=== PATIENT | female | born 1990 | race Caucasian/White ===

== ENCOUNTER 2022-08-03 19:50 | Inpatient (IN) ==
[2022-08-03] MEDS ORDERED: LIDOCAINE 1% LOCAL 20 ML VIAL INFIL PRN (20:42)
[2022-08-03] MEDS ORDERED: OXYTOCIN 30 UNITS/500 ML BAG IV PRN (20:42)
--- NOTE | 2022-08-03 20:47 | History & Physical Report ---
Date of Service August 03, 2022 Assessment & Plan (1) 39 weeks gestation of : Plan: Admit, routine labs, Cytotec 25 mcg sublingual every 4 hours, oxytocin after cervical ripening, epidural when patient desires Anticipate spontaneous vaginal delivery (2) Premature rupture of membranes: Plan: GBS negative Consider antibiotics if prolonged rupture of membranes, or signs or symptoms consistent with choio during labor History of Present Illness Chief Complaint: LOF Primary Care Provider: NO PCP Patient is a pleasant 31-year-old at 39 weeks and 5 days who presented to labor and delivery after calling the answering service for spontaneous rupture of membranes at 6:45 PM tonight. Was having cramping prior, and having irregular contractions at this time. She denies vaginal bleeding. Notes good movement. Denies headache, blurry vision, right upper quadrant or epigastric pain. No other complications this . Allergies Allergy/AdvReac Type Severity Reaction Status Date / Time No Known Allergies Allergy Unverified 08/03/22 20:42 Home Medications Medication Instructions Recorded Confirmed Type 1 tab PO DAILY 08/03/22 08/03/22 History ferrous sulfate 325 mg (65 mg 325 mg PO BID 08/03/22 08/03/22 History iron) tablet (iron) Patient History Surgical History Hx of adenoidectomy 10 years old [place] teeth extracted 2006 Social History Smoking Status: Former smoker Smoking End Date: 2017; Hx Alcohol Use: No Hx Substance Use: No Preferred Language: Lao Communication Ability: Effective Certified Optician Required: No Beliefs That Will Affect Care: None marital status: Current Living Situation: Spouse Other Information That Helps Us Care for You: No Feels Safe at Home: Yes Safety Concerns: Feels Safe At This Time Assistive Devices: None 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 Review of Systems All systems reviewed & are unremarkable except as noted in HPI & below Physical Exam Constitutional: WD/WN, vitals as above Respiratory: normal respiratory effort, lungs clear to auscultation Cardiovascular: RRR, no murmur, no edema Gastrointestinal (Abdomen): normal bowel sounds, soft, nontender, no hepatosplenomegaly Leopolds 3500g Genitourinary: Grossly ruptured on exam cephalic Cervix: 50/-3 posterior and soft checked by RN Results & Data ([facility]) Vital Signs (Past 12 Hours) Vital Signs Temp Pulse Resp BP 08/03/22 20:11 36.9 C 18 08/03/22 20:07 104 H 133/88 Monitoring External Monitor heart tracing: Baseline 130, moderate variability, positive accelerations, no decelerations, category 1 tracing Tocodynamometer Tocometer: Irregular contractions
[2022-08-03 21:22] LABS: Hematocrit (blood only) 39.1 % (34.1-44.9); Hemoglobin 13.8 g/dl (12.0-16.0); Mean Corpuscular Hemoglobin 33.7 pg (25.0-34.0); Mean Corpuscular Hgb Conc 35.3 g/dL (32.0-36.0); Mean Corpuscular Volume 95.6 fL (80.0-100.0); Mean Platelet Volume 9.8 fL (9.4-12.3); Platelet Count 222 K/uL (130-400); RDW Coefficient of Variation 13.8 % (11.5-14.5); RDW Standard Deviation 48.5 fL (36.4-46.3); Red Blood Count 4.09 M/uL (3.93-5.22); White Blood Count 9.42 K/ul (4.8-10.8)
[2022-08-03] MEDS: miSOPROStoL 25 MCG TAB SL SCH (21:27)
[2022-08-04] MEDS ORDERED: miSOPROStoL 25 MCG TAB SL SCH
[2022-08-04] MEDS: LACTATED RINGER'S 1,000 ML IV PRN ×3 (00:19→09:05)
[2022-08-04] MEDS ORDERED: ePHEDrine sulfate 50 MG/ML AMP ONE ×2 (00:24→09:35)
[2022-08-04] MEDS ORDERED: SODIUM CHLORIDE 0.9% INJ 10 ML VIAL ONE (00:24)
[2022-08-04] MEDS ORDERED: fentaNYL citrate 100 MCG/2 ML VIAL ONE (00:24)
[2022-08-04] MEDS ORDERED: BUPIVACAINE 0.25% 30 ML VIAL ONE (00:24)
[2022-08-04] MEDS ORDERED: LIDOCAINE 2%/EPINEPHRINE 1:200,000 20 ML SDV ONE (00:25)
[2022-08-04] MEDS ORDERED: fentaNYL 2MCG/ML ROPIVACAINE 1.25MG/ML 100 ML BAG EPI ONE (00:25)
[2022-08-04] MEDS ORDERED: NALBUPHINE HCL INJ 10 MG/ML AMP IV PRN ×2 (00:42→10:19)
[2022-08-04] MEDS ORDERED: fentaNYL 2MCG/ML ROPIVACAINE 1.25MG/ML 100 ML BAG EPI PRN (00:42)
[2022-08-04] MEDS ORDERED: NALOXONE HCL 1 MG in SODIUM CHLORIDE 0.9% 1000ML 1,000 ML IV PRN ×2 (00:42→10:19)
[2022-08-04] MEDS ORDERED: NALOXONE HCL 0.4 MG/1 ML VIAL/CARP IV PRN ×2 (00:42→10:19)
[2022-08-04] MEDS ORDERED: diphenhydrAMINE 50 MG/ML VIAL IV PRN ×2 (00:42→10:19)
[2022-08-04] MEDS ORDERED: ePHEDrine sulfate 50 MG/ML AMP IV PRN ×3 (00:42→10:19)
[2022-08-04] MEDS ORDERED: ONDANSETRON INJ 2 MG/ML 2 ML VIAL IV PRN ×3 (00:42→10:19)
--- NOTE | 2022-08-04 00:45 | Anesthesiology Consultation ---
Date of Service August 04, 2022 Assessment & Plan Chart Review Chart Review: Patient NOT seen in Pre Admission Testing and Acceptable Risk for Labor Epidural Consults Requested none ASA ASA2 Proposed Anesthesia Anesthesia Type: Labor Epidural and CSE Risk / Benefits Reviewed With: PT / POA / Parent / Guardian, Accepts Plan and Informed Consent Obtained History Height/Weight Height: 5 ft 6 in Weight: 75.8 kg Allergies Allergy/AdvReac Type Severity Reaction Status Date / Time No Known Allergies Allergy Unverified 08/03/22 20:42 Medications Home Medications Medication Instructions Recorded Confirmed Last Taken 1 tab PO DAILY 08/03/22 08/03/22 08/03/22 ferrous sulfate 325 mg (65 mg 325 mg PO BID 08/03/22 08/03/22 07/27/22 iron) tablet (iron) Active Medications Generic Name Dose Route Start Last Admin Trade Name Freq PRN Reason Stop Dose Admin Lactated Ringer's 1,000 mls @ 125 mls/hr 08/03/22 20:42 08/04/22 00:19 Lr IV 08/05/22 20:41 999 mls/hr .Q8H PRN Administration L&D Protocol Protocol Misoprostol 25 mcg 08/03/22 21:30 08/03/22 21:27 Misoprostol 25 Mcg Tab SL 09/02/22 21:29 25 mcg Q4H MARNI Administration NPO Date Last Intake of Fluids: 08/04/22 Time Last Intake of Fluids: 00:10 Date Last Intake of Solids: 08/03/22 Time Last Intake of Solids: 18:00 Exercise / Class Metabolic Activity II 4-5 Yardwork/Stairs/Walk up hill Past Surgical History Surgical History Hx of adenoidectomy 10 years old [place] teeth extracted 2006 Past Anesthesia History No Hx of Anesthesia Complications and No Family Hx of Anesthesia Complications History of PONV No Hx of PONV and No Hx of Motion Sickness Social History Smoking Status: Former smoker tobacco type: cigarettes Smoking End Date: 2017 Hx Alcohol Use: No Hx Substance Use: No Review of Systems no chest pain or sob Physical Exam Vital Signs Last Vital Signs Temp 36.8 C 08/03/22 23:50 Pulse 94 H 08/04/22 00:41 Resp 18 08/03/22 20:11 BP 129/76 08/04/22 00:34 Pulse Ox 100 08/04/22 00:41 ENMT Mouth: no TMJ abnormality Thyromental Distance: > or= 3.5 Finger Breadths Mallampati Class: II Neck normal visual inspection Respiratory normal respiratory effort Auscultation: lungs clear to auscultation bilaterally Cardiovascular Rate/Rhythm: regular rate and regular rhythm Musculoskeletal Spine: normal cervical ROM Neurologic moves all extremities Psychiatric Orientation: alert and oriented x 3 Testing Laboratory Results 08/03/22 21:04
[2022-08-04] MEDS ORDERED: NURSING L&D Epidural Breakthrough Pain Update ONE (03:11)
[2022-08-04] MEDS: miSOPROStoL 25 MCG TAB SL SCH (05:57)
--- NOTE | 2022-08-04 06:18 | Labor Progress Brief Note ---
Date of Service August 04, 2022 Subjective Doing well with epidural, no pain or pressure No new complaints Review of Systems All systems reviewed & are unremarkable except as noted in HPI & below Assessment & Plan (1) 39 weeks gestation of : Plan: Received 1 dose of 25 mcg of Cytotec sublingually, received an epidural, has required no oxytocin for augmentation Anticipate spontaneous vaginal delivery (2) Premature rupture of membranes: Plan: GBS negative Admission and Anticipated Discharge Date Admission Date: August 03, 2022 Physical Exam Constitutional: WD/WN, vitals as above Respiratory: normal respiratory effort, lungs clear to auscultation Cardiovascular: RRR, no murmur, no edema Gastrointestinal (Abdomen): normal bowel sounds, soft, nontender, no hepatosplenomegaly Genitourinary: heart tracing: Baseline 10/14/1934, moderate variability, positive accelerations, no decelerations, category 1 tracing Tocometer:: Contractions every 1 to 2 minutes Cervix: 10/100/+1 station Results & Data ([facility]) Vital Signs (Past 12 Hours) Vital Signs Temp Pulse Resp BP Pulse Ox 08/03/22 20:11 36.9 C 18 08/04/22 06:10 97 H 99 08/04/22 06:05 99 H 96 08/04/22 06:00 88 95 08/04/22 05:55 87 96 08/04/22 05:56 91 H 131/83 08/04/22 05:50 100 H 97 08/04/22 05:45 86 96 08/04/22 05:40 85 95 08/04/22 05:35 91 H 96 08/04/22 05:30 94 H 16 96 08/04/22 05:26 90 129/77 08/04/22 05:25 94 H 97 08/04/22 05:20 87 96 08/04/22 05:15 84 96 08/04/22 05:11 88 97 08/04/22 05:05 90 97 08/04/22 05:00 86 18 97 08/04/22 04:56 85 120/80 08/04/22 04:55 89 97 08/04/22 04:51 85 98 08/04/22 04:45 92 H 98 08/04/22 04:42 37.0 C 08/04/22 04:41 87 98 08/04/22 04:35 99 H 98 08/04/22 04:30 84 97 08/04/22 04:28 95 H 120/84 08/04/22 04:25 114 H 96 08/04/22 04:20 90 96 08/04/22 04:15 85 95 08/04/22 04:10 90 96 08/04/22 04:05 93 H 96 08/04/22 04:00 18 08/04/22 04:00 18 08/04/22 04:01 83 96 08/04/22 03:56 90 114/75 08/04/22 03:55 88 95 08/04/22 03:50 98 H 96 08/04/22 03:45 80 95 08/04/22 03:40 85 96 08/04/22 03:35 90 95 08/04/22 03:30 85 95 08/04/22 03:26 88 119/71 08/04/22 03:25 36.8 C 96 H 97 08/04/22 03:20 87 96 08/04/22 03:15 85 96 08/04/22 03:11 87 96 08/04/22 03:06 88 96 08/04/22 03:00 85 18 97 08/04/22 02:56 90 97 08/04/22 02:54 82 128/84 08/04/22 02:50 92 H 97 08/04/22 02:45 84 96 08/04/22 02:40 86 97 08/04/22 02:39 87 117/77 08/04/22 02:36 87 95 08/04/22 02:30 89 96 08/04/22 02:25 98 08/04/22 02:25 88 08/04/22 02:25 88 128/75 08/04/22 02:20 82 95 08/04/22 02:15 76 96 08/04/22 02:11 84 96 08/04/22 02:09 87 123/78 08/04/22 02:05 82 95 08/04/22 02:00 88 97 08/04/22 01:56 79 96 08/04/22 01:54 84 118/79 08/04/22 01:50 87 95 08/04/22 01:45 74 16 96 08/04/22 01:41 75 121/73 08/04/22 01:40 75 96 08/04/22 01:36 72 96 08/04/22 01:30 79 18 98 08/04/22 01:00 18 08/04/22 01:00 18 08/04/22 01:26 78 98 08/04/22 01:25 36.6 C 76 122/77 08/04/22 01:21 81 96 08/04/22 01:15 78 18 97 08/04/22 01:11 81 98 08/04/22 01:08 80 119/78 08/04/22 01:06 76 115/77 08/04/22 01:05 83 98 08/04/22 01:04 80 119/78 08/04/22 01:02 80 122/77 08/04/22 01:00 98 08/04/22 01:00 83 08/04/22 01:00 83 128/76 08/04/22 00:56 95 H 98 08/04/22 00:52 92 H 90 08/04/22 00:50 95 H 99 08/04/22 00:45 93 H 98 08/04/22 00:41 94 H 100 08/04/22 00:34 91 H 08/04/22 00:34 87 129/76 99 08/03/22 23:50 36.8 C 08/03/22 22:30 36.8 C 08/03/22 20:07 104 H 133/88
[2022-08-04] MEDS ORDERED: ATROPINE SULFATE 0.1 MG/ML 10ML SYR IV PRN (09:22)
[2022-08-04] MEDS ORDERED: fentaNYL citrate 100 MCG/2 ML VIAL IV PRN (09:22)
--- NOTE | 2022-08-04 09:22 | Communication Note ---
Date of Service: August 04, 2022 delivery under epidural anesthesia. patient had retained placenta requiring manual extraction. i did dose the patient with 10cc of lidocaine 2% for manual extraction. This was successful in removing the majority of the placental tissue, but some remained attached to the uterine wall. proceeding to the operating room for D&C under epidural anesthesia with possible MAC sedation if needed.
[2022-08-04] MEDS ORDERED: ceFAZolin 2000MG 2,000 MG/15 ML SYR IV ONE (09:30)
[2022-08-04] MEDS ORDERED: SODIUM CHLORIDE 0.9% 250 ML IV PRN (09:32)
[2022-08-04] MEDS ORDERED: PHENYLEPHRINE HCL 10 MG/ML VIAL ONE (09:35)
[2022-08-04] MEDS ORDERED: LIDOCAINE 2% MPF LOCAL 5 ML VIAL INFIL ONE (09:35)
[2022-08-04] MEDS ORDERED: PROPOFOL IV EMULSION 10 MG/ML 20 ML VIAL IV ONE (09:35)
[2022-08-04] MEDS ORDERED: MoRPHine SULFATE PF 1 MG/ML 10 ML AMP/VIAL ONE (09:45)
[2022-08-04] MEDS ORDERED: miSOPROStoL 200 MCG TAB ONE (09:56)
[2022-08-04] MEDS ORDERED: MoRPHine SULFATE PF 1 MG/ML 10 ML AMP/VIAL INT SPINAL ONE (10:19)
[2022-08-04] MEDS ORDERED: NALOXONE HCL 0.08 MG in SYRINGE 1.8 ML IV PRN (10:19)
[2022-08-04] MEDS ORDERED: MoRPHine SULFATE 2 MG/ML CARP IV PRN (10:19)
[2022-08-04] MEDS ORDERED: LACTATED RINGER'S 500 ML IV PRN (10:19)
[2022-08-04] MEDS ORDERED: KETOROLAC 30 MG/ML VIAL IV PRN (10:19)
--- NOTE | 2022-08-04 10:22 | Anesthesia Procedure Note ---
Date of Service August 04, 2022 Anesthesia Post Epidural Note Vital Signs Vital Signs: Temp Pulse Resp BP Pulse Ox 37.1 C 105 H 20 90/58 L 100 08/04/22 07:19 08/04/22 10:16 08/04/22 08:16 08/04/22 10:12 08/04/22 10:16 Pain Intensity Abdomen: Pain Intensity: 6 Notes Mental Status: alert / awake / arousable Nausea / Vomiting: adequately controlled Pain: adequately controlled Airway Patency, RR, SpO2: stable & adequate BP & HR: stable & adequate Hydration State: stable & adequate Neuraxial Anesthesia: was administered and sensory block is resolving Anesthetic Complications: no major complications apparent and Pt Satisfied with anesthetic care Epidural: Removed without complications and With tip intact
[2022-08-04] MEDS ORDERED: NO NARCOTICS OR SEDATIVES SCH (10:30)
[2022-08-04] MEDS ORDERED: SODIUM CHLORIDE 0.9% 1000ML 1,000 ML IV SCH (10:30)
[2022-08-04] MEDS ORDERED: DIPHTHERIA/TETANUS/PERTUSSIS 0.5 ML SYR/VIAL IM ONE (11:01)
[2022-08-04] MEDS ORDERED: miSOPROStoL 200 MCG TAB PR ONE (11:01)
[2022-08-04] MEDS ORDERED: OXYTOCIN 30 UNITS/500 ML BAG IV PRN (11:01)
[2022-08-04] MEDS ORDERED: HYDROCORTISONE ACETATE 25 MG SUPP PR PRN (11:01)
[2022-08-04] MEDS ORDERED: bisacodyL 10 MG SUPP PR PRN (11:01)
--- NOTE | 2022-08-04 11:13 | Delivery Summary ---
Vaginal Delivery Summary Date of Service August 04, 2022 Vaginal Delivery Summary Delivery Note live female direct OP over intact perineum with nuchal cord x2 loose and removed at delivery of head with delayed cord clamping and Apgars 8/9 weight pending. Cord blood obtained. Placenta remained undelivered after 30 minutes and anesthesia was called to make patient comfortable to remove placenta which was noted to be at the os on exam. Partial removal of placenta was acc omplished with adherent placenta noted to be still in uterus. Decision was made to take patient to the OR with retained placenta nd bleeding that has started. EBL 1500 ml. First degree tear repaired with 3/0 Vicryl suture. Final sponge needle and instrument count are found to be correct.
--- NOTE | 2022-08-04 11:14 | Post Operative Brief Note ---
Immediate Post Op Note v1 Date of Surgery August 04, 2022 Pre & Post Diagnosis Operation Date: 08/04/22 09:30 Pre-Op Diagnosis: Retained placenta Post-Op Diagnosis: Same as pre-op I identified the patient and participated in the time-out.: Yes Procedure Operation Date: 08/04/22 09:30 Actual Procedures p Dilation and Curettage - Abbe Brown MD Surgeon Abbe Brown MD Foam Rubber Molder none Estimated Blood Loss 500 Findings Consistent with Post-Op Diagnosis retained placenta Fluids LR Specimens Placenta Complications none Disposition Accompanied Patient To Recovery: Yes Overlapping Procedure I was present for: the critical portions of procedure. I was immediately available: during the entire case. Back up surgeon: was not required during procedure.
[2022-08-04 12:11] LABS: Hematocrit (blood only) 34.4 % (34.1-44.9); Hemoglobin 11.7 g/dl (12.0-16.0); Mean Corpuscular Hemoglobin 33.4 pg (25.0-34.0); Mean Corpuscular Volume 98.3 fL (80.0-100.0); Mean Platelet Volume 9.5 fL (9.4-12.3); Platelet Count 246 K/uL (130-400); RDW Standard Deviation 50.4 fL (36.4-46.3); White Blood Count 29.99 K/ul (4.8-10.8)
[2022-08-04] MEDS: BENZOCAINE 20% AER SPR 82.5 GM CAN EXT PRN (14:13)
[2022-08-04] MEDS: IBUPROFEN 600 MG TAB PO PRN ×3 (14:14→22:19)
--- NOTE | 2022-08-04 14:17 | Operative Report (OR) ---
DATE OF SURGERY: 08/04/2022. PREOPERATIVE DIAGNOSIS: Retained placenta. POSTOPERATIVE DIAGNOSIS: Retained placenta. PROCEDURE: Dilation and curettage of retained placenta. SURGEON: Abbe Brown MD. ANIMAL CARE ATTENDANT: None. ANESTHESIA: Epidural with Duramorph. CLINICAL HISTORY: The patient is a 31-year-old female, 1, para 0 at 39 weeks and 6 days, who had a normal spontaneous vaginal delivery. There was a retained placenta that was in place for grea ter than 30 minutes. Attempts at manual removal were unsuccessful. A partial removal was accomplish ed, but there was still placenta that was remaining inside the uterus. Decision was made to go to th e OR where a curettage was performed. DESCRIPTION OF PROCEDURE: Under satisfactory epidural and MAC anesthesia, the patient was prepped an d draped in the usual sterile fashion. After the patient was in dorsal lithotomy position, timeout w as called. Weighted speculum was placed in the posterior vault of the vagina. A single ring forceps were used to grasp the anterior lip of the cervix. The accounting technician scanned the patient and note d the presence of placental fragments in the lower uterine segment. Large horseshoe curette was then used curetting out this tissue and blood clot at the remainder of this procedure. The ultrasound jeremy h repeated the ultrasound and there was no evidence of any retained placenta. All remaining instrume nts were removed, the final sponge, needle and instrument counts were found to be correct. EBL total was 500 mL for this procedure and 1500 mL for the procedure in the delivery room for a total blood l oss of 2000 mL total. The patient was then placed supine on a stretcher and she was moved to recovery room in stable condition. Job ID: [id number]
[2022-08-04] MEDS: DOCUSATE SODIUM 100 MG CAP PO SCH (20:55)
[2022-08-05] MEDS ORDERED: DC INTRASPINAL MORPHINE ONE (04:20)
[2022-08-05] MEDS: IBUPROFEN 600 MG TAB PO PRN ×2 (04:58→13:25)
--- NOTE | 2022-08-05 07:42 | Obstetrical Progress Note ---
Date of Service August 05, 2022 Assessment & Plan Admission and Anticipated Discharge Date Admission Date: August 03, 2022 Subjective Patient is seen and examined. She feels well, no complaints. Ambulating without dizziness Voiding without difficulty Tolerating regular diet with out N&V Bleeding is minimal No fever/ chills/ CP/ SOB/ N&V/ Leg pain Breast feeding without problems Vital Signs Temp Pulse Resp BP Pulse Ox O2 Del Method 08/05/22 04:30 18 98 08/05/22 03:50 36.9 C 90 18 127/85 98 Room Air 08/05/22 03:36 20 97 08/04/22 21:20 20 97 08/04/22 22:15 18 99 08/05/22 00:35 20 98 08/05/22 01:25 18 97 08/05/22 02:09 18 99 08/04/22 23:30 20 98 08/04/22 23:30 36.9 C 99 H 20 115/74 98 Room Air 08/04/22 20:00 18 97 08/04/22 20:00 37 C 101 H 18 127/82 98 Room Air Lab Results 08/03/22 08/03/22 08/03/22 Range/Units 21:04 21:04 Unknown WBC 9.42 (4.8-10.8) K/ul RBC 4.09 (3.93-5.22) M/uL Hgb 13.8 (12.0-16.0) g/dl Hct 39.1 (34.1-44.9) % MCV 95.6 (80.0-100.0) fL MCH 33.7 (25.0-34.0) pg MCHC 35.3 (32.0-36.0) g/dL RDW Std Deviation 48.5 H (36.4-46.3) fL RDW Coeff of Anneliese 13.8 (11.5-14.5) % Plt Count 222 (130-400) K/uL MPV 9.8 (9.4-12.3) fL SARS-CoV-2, RNA, NAAT NEGATIVE (NEGATIVE) Blood Type A Positive Antibody Screen NEGATIVE Crossmatch See Detail 08/04/22 Range/Units 11:32 WBC 29.99 H D (4.8-10.8) K/ul RBC 3.50 L (3.93-5.22) M/uL Hgb 11.7 L (12.0-16.0) g/dl Hct 34.4 (34.1-44.9) % MCV 98.3 (80.0-100.0) fL MCH 33.4 (25.0-34.0) pg MCHC 34.0 (32.0-36.0) g/dL RDW Std Deviation 50.4 H (36.4-46.3) fL RDW Coeff of Anneliese 14.0 (11.5-14.5) % Plt Count 246 (130-400) K/uL MPV 9.5 (9.4-12.3) fL SARS-CoV-2, RNA, NAAT (NEGATIVE) Blood Type Antibody Screen Crossmatch PE: General: Alert, orientedx3, NAD Abd: soft, NT, fundus firm, below Umbilicus Perineum intact, Lochia rubra minimal Ext; NT, no edema AP: 31 yo s/p , and manual removal placenta, D&C, EBL 2 LT, ppd# 1 VSS Afebrile doing well CBC pending, lab is called Continue routine care All questions were answered Results & Data ([facility]) Vital Signs (Past 12 Hours) Vital Signs Temp Pulse Resp BP Pulse Ox O2 Del Method 08/05/22 04:30 18 98 08/05/22 03:50 36.9 C 90 18 127/85 98 Room Air 08/05/22 03:36 20 97 08/04/22 21:20 20 97 08/04/22 22:15 18 99 08/05/22 00:35 20 98 08/05/22 01:25 18 97 08/05/22 02:09 18 99 08/04/22 23:30 20 98 08/04/22 23:30 36.9 C 99 H 20 115/74 98 Room Air 08/04/22 20:00 18 97 08/04/22 20:00 37 C 101 H 18 127/82 98 Room Air
[2022-08-05] MEDS: PRENATAL VITAMIN 1 TAB PO SCH (07:48)
[2022-08-05] MEDS: DOCUSATE SODIUM 100 MG CAP PO SCH ×2 (07:48→20:02)
[2022-08-05] MEDS: FERROUS SULFATE 325 MG TAB PO SCH ×3 (07:49→17:11)
[2022-08-05] MEDS: ACETAMINOPHEN 325 MG TAB PO PRN ×2 (07:49→20:02)
[2022-08-05 08:31] LABS: Hematocrit (blood only) 23.1 % (34.1-44.9); Hemoglobin 7.9 g/dl (12.0-16.0); Mean Corpuscular Hemoglobin 33.6 pg (25.0-34.0); Mean Corpuscular Hgb Conc 34.2 g/dL (32.0-36.0); Mean Corpuscular Volume 98.3 fL (80.0-100.0); Mean Platelet Volume 9.6 fL (9.4-12.3); Platelet Count 180 K/uL (130-400); RDW Coefficient of Variation 14.4 % (11.5-14.5); RDW Standard Deviation 51.7 fL (36.4-46.3); Red Blood Count 2.35 M/uL (3.93-5.22); White Blood Count 15.82 K/ul (4.8-10.8)
--- NOTE | 2022-08-05 08:35 | Obstetrical Progress Note ---
Date of Service August 05, 2022 Assessment & Plan Admission and Anticipated Discharge Date Admission Date: August 03, 2022 Subjective 08/05/22 08/04/22 08/03/22 Range/Units 07:41 11:32 21:04 WBC 15.82 H D 29.99 H D (4.8-10.8) K/ul RBC 2.35 L 3.50 L (3.93-5.22) M/uL Hgb 7.9 L D 11.7 L (12.0-16.0) g/dl Hct 23.1 L 34.4 (34.1-44.9) % MCV 98.3 98.3 (80.0-100.0) fL MCH 33.6 33.4 (25.0-34.0) pg MCHC 34.2 34.0 (32.0-36.0) g/dL RDW Std Deviation 51.7 H 50.4 H (36.4-46.3) fL RDW Coeff of Anneliese 14.4 14.0 (11.5-14.5) % Plt Count 180 246 (130-400) K/uL MPV 9.6 9.5 (9.4-12.3) fL Blood Type A Positive Antibody Screen NEGATIVE Crossmatch See Detail CBC is back, anemic, Asymptomatic Start IV iron Results & Data ([facility]) Vital Signs (Past 12 Hours) Vital Signs Temp Pulse Resp BP Pulse Ox O2 Del Method 08/05/22 04:30 18 98 08/05/22 03:50 36.9 C 90 18 127/85 98 Room Air 08/05/22 03:36 20 97 08/04/22 21:20 20 97 08/04/22 22:15 18 99 08/05/22 00:35 20 98 08/05/22 01:25 18 97 08/05/22 02:09 18 99 08/04/22 23:30 20 98 08/04/22 23:30 36.9 C 99 H 20 115/74 98 Room Air
[2022-08-05] MEDS ORDERED: NON-FORMULARY MEDICATION (Prenatal 1 TAB) PO SCH (09:00)
[2022-08-05] MEDS ORDERED: IRON SUCROSE 200 MG in 0.9 % SODIUM CHLORIDE 100 ML IV ONE (09:00)
[2022-08-05] MEDS ORDERED: OXYTOCIN 30 UNITS/500 ML BAG IV PRN (11:10)
--- NOTE | 2022-08-05 12:32 | Obstetrical Progress Note ---
Date of Service August 05, 2022 Assessment & Plan Admission and Anticipated Discharge Date Admission Date: August 03, 2022 Subjective Patient has received 2 doses of PCN. FHR categ I Ctxs spaced out VE; 7-8/ 80%/-1, bulging bag, AROM'ed clear fluid Augment with low dose Oxytocin Continue to monitor Results & Data ([facility]) Vital Signs (Past 12 Hours) Vital Signs Temp Pulse Resp BP Pulse Ox O2 Del Method 08/05/22 12:06 36.7 C 82 16 127/88 98 Room Air 08/05/22 10:16 36.7 C 91 H 16 117/80 97 Room Air 08/05/22 08:20 36.9 C 89 18 125/81 97 Room Air 08/05/22 04:30 18 98 08/05/22 03:50 36.9 C 90 18 127/85 98 Room Air 08/05/22 03:36 20 97 08/05/22 00:35 20 98 08/05/22 01:25 18 97 08/05/22 02:09 18 99
[2022-08-05] MEDS ORDERED: bisacodyL 5 MG TABEC PO SCH (20:00)
[2022-08-05] MEDS: miSOPROStoL 25 MCG TAB SL SCH (21:47)
[2022-08-06] MEDS: miSOPROStoL 25 MCG TAB SL SCH ×2 (02:28→06:25)
[2022-08-06 07:00] LABS: Basophils # (auto) 0.03 K/uL (0-0.2); Basophils % (auto) 0.3 %; Eosinophils # (auto) 0.25 K/uL (0-0.50); Eosinophils % (auto) 2.5 %; Hematocrit (blood only) 21.6 % (34.1-44.9); Hemoglobin 7.4 g/dl (12.0-16.0); Immature Granulocytes # (auto) 0.16 K/uL (0.00-0.02); Immature Granulocytes % (auto) 1.6 %; Lymphocytes # (auto) 2.27 K/uL (1.2-3.4); Lymphocytes % (auto) 22.6 %; Mean Corpuscular Hemoglobin 33.3 pg (25.0-34.0); Mean Corpuscular Hgb Conc 34.3 g/dL (32.0-36.0); Mean Corpuscular Volume 97.3 fL (80.0-100.0); Mean Platelet Volume 9.1 fL (9.4-12.3); Monocytes # (auto) 0.65 K/uL (0.24-0.82); Monocytes % (auto) 6.5 %; Neutrophils # (auto) 6.67 K/uL (1.4-6.5); Neutrophils % (auto) 66.5 %; Platelet Count 207 K/uL (130-400); RDW Coefficient of Variation 14.5 % (11.5-14.5); RDW Standard Deviation 51.7 fL (36.4-46.3); Red Blood Count 2.22 M/uL (3.93-5.22); White Blood Count 10.03 K/ul (4.8-10.8)
[2022-08-06 07:28] LABS: Basophilic Stippling Occasional
--- NOTE | 2022-08-06 07:28 | Obstetrical Progress Note ---
Date of Service August 06, 2022 Assessment & Plan (1) Normal course: Continue routine care Follow-up in clinic 3 and 6 weeks . Patient voiced her understanding and agreement with the plan of care. All questions were answered in the room (2) hemorrhage: Hemoglobin 7.4, asymptomatic. Vitals stable. Will discharge home on p.o. iron and Colace ER precautions given Subjective Ambulation: ambulating normally Voiding: no voiding problems Passing Gas:: Yes Diet Tolerance:: regular diet Lochia:: Moderate Feeding Type:: breast feeding Current Pain Level(1-10): 1 Patient doing well, supplementing baby with formula as well as breast-feeding. Denies any dizziness, shortness of breath, chest pain or palpitations. Otherwise feeling well. Bleeding has significantly improved and wants to go home today if possible. Physical Exam Constitutional WD/WN, vitals as above Respiratory normal respiratory effort, lungs clear to auscultation Cardiovascular RRR, no murmur, no edema Gastrointestinal (Abdomen) normal bowel sounds, soft, nontender, no hepatosplenomegaly Results & Data ([facility]) Vital Signs (Past 12 Hours) Vital Signs Temp Pulse Resp BP Pulse Ox O2 Del Method 08/05/22 23:27 36.8 C 102 H 16 113/73 96 Room Air 08/05/22 20:06 36.7 C 108 H 18 120/79 97 Room Air Laboratory Results Hemoglobin/hematocrit: 7.4/21.6%
[2022-08-06] MEDS: IBUPROFEN 600 MG TAB PO PRN (08:05)
[2022-08-06] MEDS: DOCUSATE SODIUM 100 MG CAP PO SCH (08:06)
[2022-08-06] MEDS: FERROUS SULFATE 325 MG TAB PO SCH (08:06)
[2022-08-06] MEDS: PRENATAL VITAMIN 1 TAB PO SCH (08:06)
[2022-08-06] MEDS: BENZOCAINE 20% AER SPR 82.5 GM CAN EXT PRN (09:04)
== END 2022-08-06 13:05 | disposition home or self-care (01) | DRG 806 ==
LOC: OPB 19:50 → 4S1 19:54 → 4E2 08-04 13:55